=== PATIENT | female | born 1945 | race Native Hawaiian/Other Pacific Islander ===

== ENCOUNTER 2020-08-15 20:51 | Emergency (ER) | payer OTHER ==
[~2020-08-15] VITALS: Ht 172.7 cm; Wt 68.0 kg
[2020-08-15 20:51] VITALS: BP 150/74; TEMP 97.9
[2020-08-15 21:42] LABS: PLATELET COUNT 151 K/uL (152-353)
[2020-08-15 22:13] LABS: POTASSIUM 4.3 mmol/L (3.6-5.2)
[2020-08-15] MEDS ORDERED: CYCLOBENZAPRINE5 MG PO (23:19)
[2020-08-15] MEDS ORDERED: HALO5TAB10 PO (23:19)
[2020-08-15] MEDS ORDERED: TYLENOL325 MG PO (23:20)
[2020-08-15] MEDS ORDERED: METOPROLOL25 M1 PO (23:20)
== END 2020-08-15 22:58 | disposition still patient (30) ==
LOC: ED 21:04
PROVIDERS: Hospitalist
DX: F25.8 Other schizoaffective disorders (principal); F22 Delusional disorders; Z11.59 Encounter for screening for other viral diseases; Z04.6 Encounter for general psychiatric examination, requested by authority
CPT/HCPCS: 36415; 80053; 85027; 87635; 93005; 99285; U0003